=== PATIENT | female | born 1985 | race Caucasian/White ===

== ENCOUNTER → 2017-11-17 10:01 | Outpatient (CLI) | payer BC, SELFPAY ==
--- NOTE | 2017-11-17 10:05 | MR_ITS ---
MR knee LT wo con HISTORY: Left knee pain/sprain following twisting injury swelling ITS.REASON: SPRAIN OF KNEE ORDERING PHYSICIAN: Rodolfo Bustillos PATIENT AGE: 32 years Comparison: None TECHNIQUE: Standard multiplanar multiecho sequences are performed without contrast. FINDINGS: The cruciate ligaments, collateral ligaments, patellar tendon, and quadriceps tendon are unremarkable. No meniscal tear. Increased T2 signal involves the lateral aspect of the proximal tibia and the fibular head at the tibial fibular junction consistent with bone bruise. On the coronal images there is a curvilinear area of decreased signal intensity along the lateral aspect of the proximal tibia which may represent an avulsed popliteal fibular ligament. There is some mild lateral subluxation of the patella with some minimal thinning of the patellar cartilage. The patellofemoral ligaments appear intact. Only small amount fluid is present within the knee joint. IMPRESSION: 1. Suspect tear of the popliteal fibular ligament 2. Lateral subluxation of the patella a small knee joint effusion and mild chondromalacia patella. 3. No meniscal tear or cruciate ligament tear
== END ==
PROVIDERS: PCP Nurse Practitioner Family; Visit Provider Family Medicine Sports Medicine
DX: S83.8X2A Sprain of other specified parts of left knee, initial encounter (principal)
CPT/HCPCS: 73721

== ENCOUNTER → 2019-01-15 13:52 | Outpatient (CLI) | payer BC, SELFPAY ==
[2019-01-15 17:42] LABS: Alanine Aminotransferase 89 U/L (12-78); Albumin Level 4.3 gm/dL (3.4-5.0); Albumin/Globulin Ratio 1.3 (1.1-1.8); Alkaline Phosphatase 62 U/L (46-116); Anion Gap 14.4 mEq/L (5-15); Aspartate Amino Transferase 51 U/L (15-37); Bilirubin,Total 0.8 mg/dL (0.2-1.0); Blood Urea Nitrogen 7 mg/dL (7-18); Calcium 9.3 mg/dL (8.5-10.1); Carbon Dioxide 28 mmol/L (21.0-32.0); Chloride 102 mmol/L (98-107); Cholesterol 212 mg/dL (140-200); Creatinine,Serum 0.72 mg/dL (0.55-1.02); Estimated Glomerular Filt Rate 92 ml/min (>60); GFR (African American) 112 ML/MIN (>60); Globulin 3.3 gm/dl (1.3-3.2); Glucose 85 mg/dL (74-106); HDL Cholesterol 42 mg/dL (29-89); LDL Cholesterol 132 mg/dL (0-130); Potassium 4.4 mmoL/L (3.5-5.1); Sodium 140 mmol/L (136-145); Total Protein,Serum 7.6 gm/dL (6.4-8.2); Triglycerides 191 mg/dL (30-200); VLDL Cholesterol 38 mg/dL (0-40)
== END ==
PROVIDERS: Visit Provider Nurse Practitioner
DX: R63.5 Abnormal weight gain (principal)
CPT/HCPCS: 36415; 80053; 80061

== ENCOUNTER → 2019-03-15 13:55 | Outpatient (CLI) | payer BC, SELFPAY ==
[2019-03-15 14:39] LABS: Basophils % 0.5 % (0.1-2.0); Eosinophils # 0.1 K/mm3 (0.0-0.4); Eosinophils % 2.1 % (0.1-12.0); Hematocrit 37.6 % (37.0-47.0); Hemoglobin 11.1 g/dL (12.2-16.2); Lymphocytes # 1.7 K/mm3 (0.7-4.5); Lymphocytes % 25.4 % (10-50); Mean Corpuscular HGB Conc 29.6 g/dL (31.8-35.4); Mean Corpuscular Hemoglobin 19.2 pg (27.0-31.2); Mean Corpuscular Volume 64.9 fl (81-99); Mean Platelet Volume 7.2 fl (7.4-10.4); Monocytes # 0.3 K/mm3 (0.1-1.0); Monocytes % 4.6 % (1.7-9.3); Neutrophils # 4.4 K/mm3 (1.8-7.8); Neutrophils % 67.4 % (37.0-80.0); Platelet Count 378 K/mm3 (142-424); Red Cell Distribution Width 14.7 % (11.5-17.5); White Blood Count 6.6 K/mm3 (4.8-10.8)
[2019-03-15 15:40] LABS: Anion Gap 15.2 mEq/L (5-15); Blood Urea Nitrogen 9 mg/dL (7-18); Calcium 9.2 mg/dL (8.5-10.1); Carbon Dioxide 27 mmol/L (21.0-32.0); Chloride 103 mmol/L (98-107); Creatinine,Serum 0.79 mg/dL (0.55-1.02); Estimated Glomerular Filt Rate 83 ml/min (>60); GFR (African American) 100 ML/MIN (>60); Glucose 119 mg/dL (74-106); Potassium 4.2 mmoL/L (3.5-5.1); Sodium 141 mmol/L (136-145)
== END ==
PROVIDERS: PCP Nurse Practitioner Family; Visit Provider Otolaryngology
DX: S02.2XXA Fracture of nasal bones, initial encounter for closed fracture (principal)
CPT/HCPCS: 36415; 80048; 85025

== ENCOUNTER → 2019-03-17 13:19 | Outpatient (CLI) | payer BC, SELFPAY ==
--- NOTE | 2019-03-17 | ECG_ITS ---
APPROVED REPORT Exam: Resting ECG HR:68 bpm ECG Measurements Heart Rate 68 AXES IN 130 P 63 QRSd 84 QRS 49 QT 444 T 51 QTc 472 <Conclusion> Normal sinus rhythm Normal ECG Electronically signed by : Minh Booker, 03/19/2019 16:39:34
== END ==
PROVIDERS: Visit Provider Otolaryngology
DX: Z01.818 Encounter for other preprocedural examination (principal); S02.2XXA Fracture of nasal bones, initial encounter for closed fracture
CPT/HCPCS: 93005

== ENCOUNTER → 2019-08-06 10:16 | Outpatient (CLI) | payer BC, SELFPAY ==
--- NOTE | 2019-08-06 10:16 | MR_ITS ---
PROCEDURE: MR ANKLE RT WO/W CON CLINICAL INDICATION: Evaluate for peroneal tendon tear. High ankle sprain, peroneal tendon injury, deltoid ligament sprain COMPARISON: XR ANKLE RT MIN 3V from 07/20/2019 TECHNIQUE: Routine multiplanar multi echo sequences are performed without and with gadolinium enhancement. FINDINGS: No bone bruise or fracture apparent. The tibiofibular ligaments appear intact. There is focal increased T2 signal involving the medial aspect of the ATFL consistent with a tear. The PT FL appears intact. The deltoid ligaments appear intact.. The spring ligament appears intact. There is a type 2 os navicularis with unremarkable signal intensity at the apophysis. There is a small amount of fluid in the anterior aspect of the ankle joint and a moderate amount of fluid in the posterior aspect of the ankle at the talocalcaneal region and extending into the soft tissues of categories fat pad. Soft tissue swelling is present both medially and laterally. The Achilles tendon appears intact. There is a small amount of fluid around the peroneal tendon sheath just inferior to the tip of the lateral malleolus. There is no evidence of complete tear of the peroneal tendons. There is increased T2 signal involving the peroneal longus tendon at the region of the distal calcaneus. There is some slight increased T2 signal involving the peroneal brevis tendon inferior to the tip of the lateral malleolus which could represent partial tear or some tendinitis. The there is a moderate amount of fluid and edema around the peroneal brevis tendon sheath with edema at the lateral calcaneal area and inferior to the tip of the lateral malleolus. Fluid is also present surrounding the distal aspect of the posterior tibialis and flexor digitorum longus tendon with a greater amount of fluid around the distal aspect of the flexor hallucis longus tendon and also fluid in the soft tissues posteriorly at the ankle joint. IMPRESSION: The 1. Tear of the medial aspect of the ATFL. 2. Possible partial tear versus the strain of the peroneal brevis tendon inferior to the tip of the lateral malleolus. There is also increased T2 signal involving the peroneal longus tendon at the level of the distal calcaneus laterally which could represent strain versus partial tear. A complete tear is not felt to be present. 3. Ankle joint effusion with fluid around the posterior tibialis, flexor hallucis longus and flexor digitorum longus tendons. 4. Moderate amount soft tissue swelling about the ankle joint. 5. Type 2 os navicularis Dictated by: Keon Maradiaga MD 08/06/2019 14:42 Electronically signed by Keon Maradiaga MD in [place] 08/06/2019 14:42
== END ==
PROVIDERS: PCP Nurse Practitioner Family; Visit Provider Podiatrist
DX: S93.491A Sprain of other ligament of right ankle, initial encounter (principal)
CPT/HCPCS: 73723; A9576

== ENCOUNTER 2020-05-01 16:07 | Emergency (ER) | payer BC, SELFPAY ==
[2020-05-01 16:15] VITALS: BP 150/90; PULSE 86; RESP 20; TEMP 36.9; O2SAT 99; BMI 32.3
--- NOTE | 2020-05-01 16:42 | HMH.EDUTC ---
[facility] – [place] Disposition Clinical Impression: Abdominal pain Qualifiers: Abdominal location: unspecified location Qualified Code(s): R10.9 - Unspecified abdominal pain Disposition: Still a Patient Condition on Discharge: Good Referrals: Kesha Nieves [Primary Care Provider] - Time of Disposition: 16:52 Medical Decision Making - Angel Inquiry Pt receiving controlled substance: No Angel was queried for this patient: No Vital Signs: 05/01/20 16:15 Temperature 98.4 F Temperature Source Oral Pulse Rate [Right Brachial] 86 Respiratory Rate 20 Blood Pressure [Right Arm] 150/90 H Blood Pressure Mean [Right Arm] 110 Blood Pressure Source [Right Arm] Automatic Cuff Blood Pressure Position [Right Arm] Sitting 02 Sat by Pulse Oximetry 99 Oxygen Delivery Method Room Air Medical Decision Narrative: Patient reports having abdominal pain and swelling in left upper abdomen discussed with patient and she advised that pain has been occurring for the last 3 days and continued to get worse Due to abdominal pain and tenderness when palpated recommended transfer to the ED for further work up and evaluation Called ED and patient moved to room 9 without complications [facility] [place] HPI - General Stated complaint: Pain under left breast area;Protruding;and nausea Time Seen by Provider: 05/01/20 16:43 Mode of Arrival: Ambulatory Source of Information: Patient Limitations: No Limitations Description of Symptoms (Recalled from Triage Doc. by RN): PATIENT C/O LUQ PAIN AND SWELLING WITH NAUSEA X 2 DAYS. SHE DESCRIBES THE PAIN SHOOTING, SOMETIMES INTO HER BLQ. SHE HAS DIARRHEA, BUT STATES THAT IS NORMAL FOR HER SINCE SHE HAS A CHOLECYSTECTOMY AND BILE DUCT DILATION IN 2007. HEENT Symptoms (Recalled from RN notes): No Resp Symptoms (Recalled from RN notes): No Skin Symptoms (Recalled from RN notes): No MS Symptoms (Recalled from RN notes): No Functional Status (Recalled from RN notes): WNL - History of Present Illness Provider Complaint: Patient states that she has been having pain in her left upper abdomen that has continued to get worse over the last 3 days States that she has had diarrhea and nausea but she has that frequently and didnt think anything of it until she noticed pain was getting worse and at times would shoot in her back and lower abdomen. States that she had gallbladder removed about 12 yrs ago and had to have her duct dilated due to gallstone lodged and she has had diarrhea on and off since then States that today she noticed her left upper abdomen looked swollen and would have pain with certain ways she sits and feels pressure/ that goes up under her left breast State that her abdomen is sore to the touch - Related Data Home Medications Medication Instructions Recorded Confirmed estradiol 1 mg tablet 1 mg PO ONCE tab 06/14/17 08/23/19 fluoxetine 60 mg tablet 60 mg PO ONCE 06/14/17 08/23/19 metformin 1,000 mg tablet 1,500 mg PO ONCE tab 06/14/17 08/23/19 buspirone 10 mg tablet 10 mg PO NEEDED PRN #60 tab 12/20/18 08/23/19 phentermine 37.5 mg tablet 37.5 mg PO DAILY 08/09/19 08/23/19 Previous Rx's Medication Instructions Recorded fluticasone propionate 50 1 spray INTRANASAL DAILY #9.9 ml 04/01/19 mcg/actuation nasal spray,suspension diclofenac sodium 1 % topical gel 4 g TOPICAL QID PRN #30 g 08/23/19 Allergies Allergy/AdvReac Type Severity Reaction Status Date / Time clarithromycin [From BIAXIN] Allergy Unknown Unknown Verified 08/23/19 10:10 allergy reaction shellfish derived Allergy Unknown I-HIVES Verified 08/23/19 10:10 [From SHELLFISH (FOOD/DRUG)] - Worker's Comp Is this a Worker's Comp case?: No [facility] History - Hepatitis A Screen Drug use history?: No High risk sexual behaviors?: No History of sexually transmitted infection?: No Currently employed?: No Childcare worker?: No Do you have indoor plumbing?: Yes Do you have electricity?: Yes Attestation statement:: This patient
--- NOTE | 2020-05-01 16:51 | PC.NURSE ---
PATIENT TO ER PER WENDY RAMIREZ APRN FOR FURTHER EVALUATION. REPORT GIVEN BY Osmani RAMIREZ APRN TO Fredi WALLACE RN
[2020-05-01 17:11] VITALS: BP 122/85; PULSE 84; RESP 16; TEMP 36.8; O2SAT 98; BMI 32.3
--- NOTE | 2020-05-01 17:21 | CT_ITS ---
PROCEDURE: CT ABDOMEN PELVIS WO CON CLINICAL INDICATION: pain LUQ Left upper quadrant pain COMPARISON: CT ABDPELW CT abdomen pelvis w con from 12/25/2017 TECHNIQUE: Axial images obtained with sagittal and coronal reformats. All CT scans at the facility use one or more dose reduction, viz: automated exposure control, ma/kV adjustment per patient size (including targeted exams where dose is matched to indication, i.e. head), or iterative reconstruction technique. FINDINGS: LOWER THORAX: No acute finding ABDOMEN & PELVIS: Fatty liver. Mild hepatomegaly. Prior cholecystectomy. Adrenal glands, pancreas, and kidneys have an unremarkable appearance. No renal or ureteral calculi. No hydronephrosis. Scattered small nodes are present in the mesenteries. No evidence of appendicitis or diverticulitis. There is a mild amount of retained colonic feces in the rectosigmoid region. There has been a prior hysterectomy. There is a small umbilical hernia containing fat. No acute bony findings. IMPRESSION: No acute finding Dictated by: Keon Maradiaga MD 05/02/2020 07:01 Keon Maradiaga MD in [place] 05/02/2020 07:01
[2020-05-01 17:26] LABS: Microscopic, Urine URINE MICROSCOPIC (MICROSCOPIC)
[2020-05-01 17:28] VITALS: BP 125/86; PULSE 76; O2SAT 98
[2020-05-01 17:29] LABS: Appearance,Urine SL CLOUDY (Clear); Bilirubin,Urine Negative (Negative); Blood, Urine Negative (Negative); Color,Urine YELLOW (Yellow); Glucose,Urine (UA) Negative (Negative); Ketones,Urine Negative (Negative); Leukocyte Esterase,Urine Negative (Negative); Nitrate,Urine Negative (Negative); Protein,Urine Negative (Negative); Specific Gravity, Urine 1.025 (1.005-1.030); Urobilinogen,Urine 0.2 EU/dl (0.2)
[2020-05-01 17:36] LABS: Urine Pregnancy, HCG Qual. Negative (Negative)
--- NOTE | 2020-05-01 17:46 | PC.NURSE ---
pt going to rad
[2020-05-01 17:50] LABS: Bacteria,Urine 3+ /lpf
[2020-05-01 18:00] LABS: Basophils # 0.1 K/mm3 (0-0.2); Basophils % 0.8 % (0.1-2.0); Eosinophils # 0.3 K/mm3 (0.0-0.4); Eosinophils % 3.9 % (0.1-12.0); Hematocrit 37.6 % (37.0-47.0); Lymphocytes # 2.3 K/mm3 (0.7-4.5); Lymphocytes % 31.9 % (10-50); Mean Corpuscular HGB Conc 31.9 g/dL (31.8-35.4); Mean Corpuscular Hemoglobin 20.1 pg (27.0-31.2); Mean Corpuscular Volume 62.9 fl (81-99); Mean Platelet Volume 7.4 fl (7.4-10.4); Monocytes # 0.4 K/mm3 (0.1-1.0); Monocytes % 5.2 % (1.7-9.3); Neutrophils # 4.3 K/mm3 (1.8-7.8); Neutrophils % 58.2 % (37.0-80.0); Platelet Count 413 K/mm3 (142-424); Red Blood Count 5.98 M/mm3 (4.20-5.40); Red Cell Distribution Width 15.1 % (11.5-17.5); White Blood Count 7.3 K/mm3 (4.8-10.8)
[2020-05-01 18:02] LABS: Chloride 103 mmol/L (98-107)
[2020-05-01 18:03] LABS: Sodium 139 mmol/L (136-145)
[2020-05-01 18:05] LABS: Alanine Aminotransferase 70 U/L (12-78); Alkaline Phosphatase 66 U/L (38-126); Aspartate Amino Transferase 55 U/L (14-36); Bilirubin,Total 0.8 mg/dl (0.2-1.3); Blood Urea Nitrogen 7 mg/dl (7-17); Carbon Dioxide 28 mmol/L (22.0-30.0); Creatinine Clearance Estimated 186 mL/min (50-200); Estimated Glomerular Filt Rate 113 ml/min (>60); GFR (African American) 137 ML/MIN (>60); Lipase 77 U/L (23-300)
[2020-05-01 18:06] LABS: Albumin/Globulin Ratio 1.4 (1.1-1.8); Calcium 9.6 mg/dl (8.4-10.2); Globulin 3.5 g/dL (1.3-3.2); Glucose 101 mg/dl (74-100); Total Protein,Serum 8.5 g/dl (6.3-8.2)
--- NOTE | 2020-05-01 18:13 | HMH.EDABDPAI ---
ED Disposition Clinical Impression: Abdominal pain Qualifiers: Abdominal location: unspecified location Qualified Code(s): R10.9 - Unspecified abdominal pain Strain of abdominal wall Qualifiers: Encounter type: initial encounter Qualified Code(s): S39.011A - Strain of muscle, fascia and tendon of abdomen, initial encounter Disposition: Home, Self-Care Condition on Discharge: Good Instructions: DI for Abdominal Pain-Adult Referrals: Kesha Nieves [Primary Care Provider] - - Critical Care Critical Care Time: No Attestation: On 05/01/20, the high probability of a clinically significant, sudden or life threatening deterioration of the following system(s) required my full and direct attention, intervention and personal management. The time I documented below is in addition to time spent performing reported procedures but includes the following listed in this critical care notation. Medical Decision Making - Medical Records Medical records reviewed: Yes: I reviewed the patient's medical records. - Angel Inquiry Pt receiving controlled substance: No Vital Signs: 05/01/20 16:15 05/01/20 17:11 05/01/20 17:28 Temperature 98.4 F 98.2 F Temperature Source Oral Oral Pulse Rate [Right Brachial] 86 84 76 Respiratory Rate 20 16 Blood Pressure [Right Arm] 150/90 H 122/85 125/86 Blood Pressure Mean [Right Arm] 110 97 99 Blood Pressure Source [Right Arm] Automatic Cuff Automatic Cuff Automatic Cuff Blood Pressure Position [Right Arm] Sitting Sitting 02 Sat by Pulse Oximetry 99 98 98 Oxygen Delivery Method Room Air Room Air Room Air - Lab Data Lab Results 05/01/20 15:19: Urine Color Yellow, Urine Appearance Sl cloudy, Urine pH 6.0, Ur Specific Taylor 1.025, Urine Protein Negative, Urine Glucose (UA) Negative, Urine Ketones Negative, Urine Blood Negative, Urine Nitrate Negative, Urine Bilirubin Negative, Urine Urobilinogen 0.2, Ur Leukocyte Esterase Negative, Urine WBC 3-5, Ur Squamous Epith Cells 3-5, Urine Bacteria 3+ 05/01/20 15:19: Urine HCG, Qual Negative 05/01/20 17:30: WBC 7.3, RBC 5.98 H, Hgb 12.0 L, Hct 37.6, MCV 62.9 L, MCH 20.1 L, MCHC 31.9, RDW 15.1, Plt Count 413, MPV 7.4, Neut % (Auto) 58.2, Lymph % (Auto) 31.9, [place] % (Auto) 5.2, Eos % (Auto) 3.9, Baso % (Auto) 0.8, Neut # (Auto) 4.3, Lymph # (Auto) 2.3, [place] # (Auto) 0.4, Eos # (Auto) 0.3, Baso # (Auto) 0.1 05/01/20 17:30: Sodium 139, Potassium 4.0, Chloride 103, BUN 7, Creatinine 0.60, Estimated Creat Clear 186, Estimated GFR 113, Est GFR ( Amer) 137, Total Bilirubin 0.8, AST 55 H, ALT 70, Alkaline Phosphatase 66 Result diagrams: 05/01/20 17:30 05/01/20 17:30 Orders (Tests/Meds): ED MEDICATIONS Generic Name Dose Route Start Last Admin Trade Name Freq PRN Reason Stop Dose Admin Ketorolac Tromethamine 30 mg 05/01/20 18:13 Ketorolac 30mg/Ml Vial IV 05/01/20 18:14 ONCE ONE Discontinued Medications Generic Name Dose Route Start Last Admin Trade Name Freq PRN Reason Stop Dose Admin Morphine Sulfate 4 mg 05/01/20 17:21 Morphine 4mg/Ml Syringe IV 05/01/20 17:22 ONCE ONE Ondansetron HCl 4 mg 05/01/20 17:21 Ondansetron 4mg/2ml Vial IV 05/01/20 17:22 ONCE ONE ORDERS Category Date Time Status CT abdomen pelvis wo con Stat Cat Scan 05/01/20 17:21 Taken Comprehensive Metabolic Panel Stat Lab 05/01/20 17:30 Results Lipase Stat Lab 05/01/20 17:30 Results Urine Culture Stat Micro 05/01/20 15:19 Received - CT Data CT Scan: Abdomen, Pelvis Time Received: 18:[address] Reviewed: Yes: I have reviewed the patient's CT results, I have viewed the radiologist's interpretation Findings Narrative: No discrete findings, no bowel obstruction. Soft tissue normal. - Reevaluation(s) Time: 18:17 Reevaluation #1: On reevaluation, patient is feeling better. Work-up is benign. Repeat abdominal exam is normal. I do believe this is secondary to abdominal muscle wall strain. Patient needs foll
[2020-05-01 18:33] VITALS: BP 123/78; PULSE 80; RESP 18; TEMP 36.8; O2SAT 97
== END 2020-05-01 18:34 | disposition home or self-care (01) ==
LOC: UTC 16:52 → ER 16:59
PROVIDERS: Emergency Provider Emergency Medicine; PCP Nurse Practitioner Family
DX: R10.12 Left upper quadrant pain (principal); S39.011A Strain of muscle, fascia and tendon of abdomen, initial encounter; W01.0XXA Fall on same level from slipping, tripping and stumbling without subsequent striking against object, initial encounter; Y92.009 Unspecified place in unspecified non-institutional (private) residence as the place of occurrence of the external cause; F41.9 Anxiety disorder, unspecified; E11.9 Type 2 diabetes mellitus without complications; Z79.899 Other long term (current) drug therapy
CPT/HCPCS: 74176; 80053; 81001; 81025; 83690; 85025; 87086; 96374; 96375; 99283; J2405

== ENCOUNTER → 2020-08-17 11:12 | Outpatient (CLI) | payer BC, SELFPAY ==
[2020-08-17 11:57] LABS: Basophils % 0.6 % (0.1-2.0); Eosinophils # 0.2 K/mm3 (0.0-0.4); Eosinophils % 2.7 % (0.1-12.0); Hematocrit 37.4 % (37.0-47.0); Hemoglobin 11.9 g/dL (12.2-16.2); Lymphocytes # 1.9 K/mm3 (0.7-4.5); Lymphocytes % 32.4 % (10-50); Mean Corpuscular HGB Conc 31.7 g/dL (31.8-35.4); Mean Corpuscular Hemoglobin 19.6 pg (27.0-31.2); Mean Corpuscular Volume 61.9 fl (81-99); Mean Platelet Volume 7.6 fl (7.4-10.4); Monocytes # 0.3 K/mm3 (0.1-1.0); Monocytes % 5.3 % (1.7-9.3); Neutrophils # 3.5 K/mm3 (1.8-7.8); Platelet Count 447 K/mm3 (142-424); Red Blood Count 6.05 M/mm3 (4.20-5.40); Red Cell Distribution Width 14.5 % (11.5-17.5); White Blood Count 5.9 K/mm3 (4.8-10.8)
[2020-08-17 12:25] LABS: Chloride 102 mmol/L (98-107); Potassium 4.7 mmoL/L (3.5-5.1); Sodium 138 mmol/L (136-145)
[2020-08-17 12:27] LABS: Hemoglobin A1C 5.5 % (4.0-6.0)
[2020-08-17 12:28] LABS: Alanine Aminotransferase 135 U/L (12-78); Albumin Level 5.2 g/dl (3.5-5.0); Albumin/Globulin Ratio 1.9 (1.1-1.8); Alkaline Phosphatase 66 U/L (38-126); Anion Gap 15.7 mEq/L (5-15); Aspartate Amino Transferase 83 U/L (14-36); Bilirubin,Total 0.6 mg/dl (0.2-1.3); Blood Urea Nitrogen 11 mg/dl (7-17); Calcium 10.3 mg/dl (8.4-10.2); Carbon Dioxide 25 mmol/L (22.0-30.0); Cholesterol 200 mg/dl (140-200); Estimated Glomerular Filt Rate 94 ml/min (>60); GFR (African American) 114 ML/MIN (>60); Globulin 2.8 g/dL (1.3-3.2); Glucose 107 mg/dl (74-100); Triglycerides 127 mg/dl (30-150); VLDL Cholesterol 25 mg/dL (0-40)
[2020-08-17 12:29] LABS: Chol/HDL Ratio 4.9 (1-3.5); HDL Cholesterol 41 mg/dl (40-60)
[2020-08-17 12:39] LABS: Direct LDL Cholesterol 119.55 mg/dL (100-129)
[2020-08-17 12:59] LABS: Thyroid Stimulating Hormone 1.16 uIU/mL (0.465-4.68)
== END ==
PROVIDERS: Visit Provider Family Medicine
DX: R63.5 Abnormal weight gain (principal)
CPT/HCPCS: 36415; 80053; 80061; 83036; 84439; 84443; 85025

== ENCOUNTER → 2021-06-18 16:02 | Outpatient (CLI) | payer BC, SELFPAY | PROVIDERS: PCP Nurse Practitioner Family; Visit Provider Surgery | DX: Z01.812 Encounter for preprocedural laboratory examination (principal); Z11.52 Encounter for screening for COVID-19; E66.01 Morbid (severe) obesity due to excess calories | CPT/HCPCS: C9803; U0003; U0005 ==

== ENCOUNTER 2021-09-13 15:37 | Emergency (ER) | payer BC, SELFPAY ==
[2021-09-13 15:45] VITALS: BP 141/96; PULSE 98; RESP 19; TEMP 36.6; O2SAT 98; BMI 39.7
--- NOTE | 2021-09-13 16:09 | HMH.EDUTC ---
[facility] [place] Clinical Impression: Sinusitis Qualifiers: Sinusitis location: unspecified location Chronicity: unspecified Qualified Code(s): J32.9 - Chronic sinusitis, unspecified Disposition: Home, Self-Care Condition on Discharge: Good Instructions: Sinusitis, DI for Sinusitis Additional Instructions: *Monitor Temp, Over the counter Motrin or Tylenol as directed/as needed Tylenol every 4 hours and Motrin every 6 hours (as long as your family doctor has told you that you can take it) for fever or pain. and straight to ER if unable to lower temp less than 101.0 after medication given *Warm salt water gargles may help to soothe the throat *Throat Lozenges *Warm fluids like tea with honey may help to soothe the throat *Sleep elevated *Humidifier/Vaporizer Take medication as prescribed Follow up IMMEDIATELY for new or worsening symptoms or no Noticeable improvement over the next 48-72 hours. 911 for difficulty breathing or swallowing Prescriptions: Amoxicillin/Potassium Clav [Amox-Clav 875-125 mg Tablet] 1 tab PO BID #20 tab Transmission Status: Pending to [facility] methylPREDNISolone [Medrol 4mg tab] 4 mg PO DIRECTED #21 tab Transmission Status: Pending to [facility] Referrals: Kesha Nieves [Primary Care Provider] - As needed Time of Disposition: 16:26 Medical Decision Making - Angel Inquiry Pt receiving controlled substance: No Angel was queried for this patient: No Vital Signs: 09/13/21 15:45 Temperature 97.9 F Temperature Source Oral Pulse Rate [Right Brachial] 98 H Respiratory Rate 19 Blood Pressure [Right Arm] 141/96 H Blood Pressure Mean [Right Arm] 111 Blood Pressure Source [Right Arm] Automatic Cuff Blood Pressure Position [Right Arm] Sitting 02 Sat by Pulse Oximetry 98 Oxygen Delivery Method Room Air Medical Decision Narrative: Patient states that she has taken augmentin and medrol in the past without complcation or reactions [facility] [place] - General Stated complaint: poss sinus inf Time Seen by Provider: 09/13/21 16:09 Mode of Arrival: Ambulatory Source of Information: Patient Limitations: No Limitations Description of Symptoms (Recalled from Triage Doc. by RN): PATIENT C/O SINUS PRESSURE AND DRAINAGE X 3 DAYS HEENT Symptoms (Recalled from RN notes): Yes Resp Symptoms (Recalled from RN notes): No Skin Symptoms (Recalled from RN notes): No MS Symptoms (Recalled from RN notes): No Functional Status (Recalled from RN notes): WNL - History of Present Illness Provider Complaint: Patient states that she has been fighting with allergies for about 3 weeks and about a week ago she started having sinus pressure and pain States that for the last 3 days it has continued to get worse so today when she was still not feeling well she came in to get checked out - Related Data Home Medications Medication Instructions Recorded Confirmed estradiol 1 mg tablet 1 mg PO ONCE tab 06/14/17 03/04/21 fluoxetine 60 mg tablet 60 mg PO ONCE 06/14/17 03/04/21 metformin 1,000 mg tablet 1,500 mg PO ONCE tab 06/14/17 03/04/21 lisinopril 5 mg tablet 5 mg PO DAILY 07/05/20 03/04/21 Previous Rx's Medication Instructions Recorded amoxicillin 875 mg-potassium 1 tab PO BID 10 Days #20 tab 03/04/21 clavulanate 125 mg tablet carbamide peroxide 6.5 % ear drops 5 drp OTIC Q12H 4 Days #15 ml 03/04/21 Amoxicillin [Amoxicillin 500mg Tab] 500 mg PO TID 10 Days #30 tab 06/26/21 Amoxicillin/Potassium Clav 1 tab PO BID #20 tab 09/13/21 [Amox-Clav 875-125 mg Tablet] methylPREDNISolone [Medrol 4mg 4 mg PO DIRECTED #21 tab 09/13/21 tab] Allergies Allergy/AdvReac Type Severity Reaction Status Date / Time clarithromycin [From BIAXIN] Allergy Unknown Unknown Verified 03/04/21 13:19 allergy reaction shellfish derived Allergy Unknown I-HIVES Verified 03/04/21 13:19 [From SHELLFISH (FOOD/DRUG)] - Worker's Comp Is this a Worker's Comp case?: No [facility] Histor
[2021-09-13 16:44] VITALS: BP 141/96; PULSE 98; RESP 19; TEMP 36.6; O2SAT 98
== END 2021-09-13 16:45 | disposition home or self-care (01) ==
PROVIDERS: Emergency Provider Nurse Practitioner; PCP Nurse Practitioner Family
DX: J32.9 Chronic sinusitis, unspecified (principal)
CPT/HCPCS: 99212; G0463

== ENCOUNTER 2021-12-11 11:37 | Emergency (ER) | payer BC, SELFPAY ==
[2021-12-11 12:25] VITALS: BP 121/86; PULSE 89; RESP 19; TEMP 36.8; O2SAT 98; BMI 33.0
--- NOTE | 2021-12-11 12:44 | EXP.UTC ---
Discharge Plan Disposition Patient Disposition: Home, Self-Care Condition: Good Prescriptions Prescriptions: New amoxicillin-pot clavulanate 875-125 mg tablet 1 tab PO Q12H 7 Days Qty: 14 0RF No Action fluoxetine 60 mg tablet 60 mg PO ONCE metformin 1,000 mg tablet 1,500 mg PO ONCE estradiol 1 mg tablet 1 mg PO ONCE lisinopril 5 mg tablet 5 mg PO DAILY carbamide peroxide [Debrox] 6.5 % drops 5 drp OTIC Q12H 4 Days Qty: 15 0RF amoxicillin-pot clavulanate [Augmentin] 875-125 mg tablet 1 tab PO BID 10 Days Qty: 20 0RF amoxicillin 500 MG tablet 500 mg PO TID 10 Days Qty: 30 0RF methylprednisolone 4 MG tablet 4 mg PO DIRECTED Qty: 21 0RF Rx Instructions: Take as directed on package instructions amoxicillin-pot clavulanate 1 EACH tablet 1 tab PO BID Qty: 20 0RF Referrals Follow up/Referrals: Kesha Nieves [Primary Care Provider] - See instructions Activity Restrictions/Add. Instructions Additional Instructions/Restrictions: *Monitor Temp, Over the counter Motrin or Tylenol as directed/as needed Tylenol every 4 hours and Motrin every 6 hours (as long as your family doctor has told you that you can take it) for fever or pain. and straight to ER if unable to lower temp less than 101.0 after medication given *Warm salt water gargles may help to soothe the throat *Throat Lozenges? *Warm fluids like tea with honey may help to soothe the throat? *Sleep elevated *Humidifier/Vaporizer Take medication as prescribec Follow up IMMEDIATELY for new or worsening symptoms or no Noticeable improvement over the next 48-72 hours. 911 for difficulty breathing or swallowing Clinical Impressions Clinical Impression: Sinusitis Instructions Patient Instructions: DI for Sinusitis Discharge ED Provider: [facility] [place] HPI General Stated complaint: congestion, dizzy, fever, possible sinus infection Mode of Arrival: Ambulatory Source of Information: Patient Limitations: No Limitations Time Seen by Provider: 12/11/21 12:44 Description of Symptoms (Recalled from Triage Doc. by RN): PATIENT C/O CONGESTION, HEAD ACHE, FEVER, AND SINUS PRESSURE X 2 DAYS HEENT Symptoms (Recalled from RN notes): Yes Resp Symptoms (Recalled from RN notes): No Skin Symptoms (Recalled from RN notes): No MS Symptoms (Recalled from RN notes): No Functional Status (Recalled from RN notes): WNL History of Present Illness Provider Complaint: Patient states that she feels like she may have a sinus infection States that she has been having sinus pain and pressure with pressure behind her eyes feeling like she may have a low grade fever and headache State that feels like she did when she had sinus infection a few months ago Related Data Home Medications Medication Instructions Recorded Confirmed estradiol 1 mg tablet 1 mg PO ONCE unknown 06/14/17 03/04/21 fluoxetine 60 mg tablet 60 mg PO ONCE Allergy symptoms 06/14/17 03/04/21 metformin 1,000 mg tablet 1,500 mg PO ONCE Diabetes 06/14/17 03/04/21 lisinopril 5 mg tablet 5 mg PO DAILY 07/05/20 03/04/21 Previous Rx's Medication Instructions Recorded amoxicillin 875 mg-potassium 1 tab PO BID 10 days #20 tabs 03/04/21 clavulanate 125 mg tablet (Augmentin) carbamide peroxide 6.5 % ear drops 5 drp otic (ear) Q12H 4 days #15 mL 03/04/21 (Debrox) amoxicillin 500 mg tablet 500 mg PO TID 10 days #30 tabs 06/26/21 amoxicillin 875 mg-potassium 1 tab PO BID #20 tabs 09/13/21 clavulanate 125 mg tablet methylprednisolone 4 mg tablet 4 mg PO DIRECTED #21 tabs 09/13/21 amoxicillin 875 mg-potassium 1 tab PO Q12H 7 days #14 tabs 12/11/21 clavulanate 125 mg tablet Allergies Allergy/AdvReac Type Severity Reaction Status Date / Time clarithromycin [From BIAXIN] Allergy Unknown Unknown Verified 03/04/21 13:19 allergy reaction shellfish derived Allergy Unknown I-HIVES Verified 03/04/21 13:19 [From SHELL
[2021-12-11 13:00] VITALS: BP 121/86; PULSE 89; RESP 19; TEMP 36.8; O2SAT 98
== END 2021-12-11 13:02 | disposition home or self-care (01) ==
PROVIDERS: Emergency Provider Nurse Practitioner; PCP Nurse Practitioner Family
DX: J32.9 Chronic sinusitis, unspecified (principal)
CPT/HCPCS: 99212; G0463

== ENCOUNTER 2023-01-27 14:09 | Emergency (ER) | payer BC, SELFPAY ==
--- NOTE | 2023-01-27 14:19 | EXP.UTC ---
Discharge Plan Disposition Patient Disposition: Home, Self-Care Condition: Good Prescriptions Prescriptions: New amoxicillin [amoxicillin] 875 mg tablet 875 mg PO Q12H Qty: 20 0RF [id number]-[id number] [Bromfed DM] 2-30-10 mg/5 mL Syrup 5 ml PO Q6H PRN (Reason: Cough) Qty: 240 0RF methylprednisolone 4 mg Tablets,Dose Pack 4 mg PO DIRECTED Qty: 21 0RF No Action fluoxetine 40 mg Capsule 40 mg PO DAILY Referrals Follow up/Referrals: Tonya Kwok PA [Primary Care Provider] - See instructions Activity Restrictions/Add. Instructions Additional Instructions/Restrictions: Drink plenty of fluids. Take tylenol or ibuprofen for pain or fever. Take the medications as directed. Follow up with your regular doctor. GO TO THE ER FOR ANY WORSENING SYMPTOMS Clinical Impressions Clinical Impression: Sinusitis Instructions Patient Instructions: Sinusitis, DI for Sinusitis Discharge ED Provider: Manjit Garcia [facility] [place] HPI General Stated complaint: congestion, runny nose and french Time Seen by Provider: 01/27/23 14:19 Related Data Home Medications Medication Instructions Recorded Confirmed fluoxetine 40 mg capsule 40 mg PO DAILY 01/27/23 01/27/23 Previous Rx's Medication Instructions Recorded amoxicillin 875 mg tablet 875 mg PO Q12H #20 tabs 01/27/23 kuxeyqbufgprvke-mhkphiuljuqdubj-CE 5 ml PO Q6H PRN Cough #240 mL 01/27/23 2 mg-30 mg-10 mg/5 mL oral syrup (Bromfed DM) methylprednisolone 4 mg tablets in 4 mg PO DIRECTED #21 tabs 01/27/23 a dose pack Allergies Allergy/AdvReac Type Severity Reaction Status Date / Time clarithromycin [From BIAXIN] Allergy Unknown Unknown Verified 03/04/21 13:19 allergy reaction shellfish derived Allergy Unknown I-HIVES Verified 03/04/21 13:19 [From SHELLFISH (FOOD/DRUG)] [facility] Disclaimer: The information contained in this section may have been updated after the patient was seen, as this information can be updated by other users. Medical History (Updated 01/27/23 @ 14:44 by Manjit Garcia APRN) Anxiety Hypertension Urinary tract infection Surgical History (Updated 12/11/21 @ 12:42 by Erika Jones RN) H/O gastric sleeve History of section History of cholecystectomy History of hysterectomy Social History (Updated 12/11/21 @ 12:58 by Cynthia Oleary APRN) Smoking Status: Never smoker second hand exposure: No alcohol intake: never substance use type: denies use current occupational status: other Travel in the last 8 weeks: None household members: spouse housing: house current occupational exposures/hazards: No caffeine: Yes ROS Obtained: Yes All systems reviewed & no additional complaints except as documented Constitutional Constitutional: Reports poor appetite Eyes Eyes: Reports system reviewed and no additional complaints, except as documented ENT Ears, Nose, Mouth, and Throat: Reports as per HPI Cardiovascular Cardiovascular: Reports system reviewed and no additional complaints, except as documented and Denies chest pain Respiratory Respiratory: Denies shortness of breath, Denies chest congestion, Reports cough, Denies stridor and Denies wheezing Gastrointestinal Gastrointestingal: Reports system reviewed and no additional complaints, except as documented; Denies abdominal pain, diarrhea or vomiting Musculoskeletal Musculoskeletal: Reports system reviewed and no additional complaints, except as documented and Denies arthralgias Integumentary/Breasts Skin/Breast: Reports system reviewed and no additional complaints, except as documented and Denies rash Neurologic Neurologic: Denies paresthesias Allergic/Immunologic Allergic/Immunologic: Denies wheezing Physical Exam General General appearance: alert and in no apparent distress Eye Eye exam: Present normal appearance, PERRL and EOMI ENT ENT exam: Present mucous membranes moist and normal
[2023-01-27 14:20] VITALS: BP 151/64; PULSE 62; RESP 22; TEMP 36.8; O2SAT 99; BMI 25.2
[2023-01-27 14:46] VITALS: BP 151/64; PULSE 62; RESP 22; TEMP 36.8; O2SAT 99
== END 2023-01-27 14:47 | disposition home or self-care (01) ==
PROVIDERS: Emergency Provider Nurse Practitioner Family; PCP Physician Assistant
DX: J01.90 Acute sinusitis, unspecified (principal); I10 Essential (primary) hypertension; F41.9 Anxiety disorder, unspecified
CPT/HCPCS: 99212; 99214; G0463

== ENCOUNTER 2023-06-02 15:25 | Emergency (ER) | payer BC, SELFPAY ==
--- NOTE | 2023-06-02 15:44 | ED_ITS ---
Discharge Plan Disposition Patient Disposition: Home, Self-Care Condition: Good Prescriptions Prescriptions: New benzonatate [benzonatate] 100 mg capsule 100 mg PO TIDP PRN (Reason: Cough) Qty: 30 0RF methylprednisolone 4 mg Tablets,Dose Pack 4 mg PO DIRECTED 6 Days Qty: 21 0RF Rx Instructions: Take 1 pack as directed for 6 days amoxicillin-pot clavulanate 875-125 mg Tablet 1 tab PO Q12H Qty: 20 0RF guaifenesin [Mucinex] 600 mg tablet extended release 12hr 600 - 1,200 mg PO BIDP PRN (Reason: Congestion) Qty: 30 0RF No Action fluoxetine 40 mg Capsule 40 mg PO DAILY estradiol 1 mg tablet 1 mg PO DAILY Patient Comments: Take 1 tablet every day by oral route. Referrals Follow up/Referrals: Ana Kwok APRN [Primary Care Provider] - See instructions Activity Restrictions/Add. Instructions Additional Instructions/Restrictions: Drink plenty of fluids. Take tylenol or ibuprofen for pain or fever. Take the medications as directed. Follow up with your regular doctor. GO TO THE ER FOR ANY WORSENING SYMPTOMS Clinical Impressions Clinical Impression: Sinusitis Stand Alone Forms Stand Alone Forms: Work/School Release Instructions Patient Instructions: Sinusitis, DI for Sinusitis Discharge ED Provider: Manjit Garcia [facility] General Stated complaint: congestion drainage Time Seen by Provider: 06/02/23 15:42 History of Present Illness Provider Complaint: She states that for the past 3 days she has had worsening sinus congestion, sinus pressure and ear pain. Related Data Home Medications Medication Instructions Recorded Confirmed fluoxetine 40 mg capsule 40 mg PO DAILY 01/27/23 06/02/23 estradiol 1 mg tablet 1 mg PO DAILY 06/02/23 06/02/23 Previous Rx's Medication Instructions Recorded amoxicillin 875 mg-potassium 1 tab PO Q12H #20 tabs 06/02/23 clavulanate 125 mg tablet benzonatate 100 mg capsule 100 mg PO TIDP PRN Cough #30 caps 06/02/23 guaifenesin 600 mg tablet, 600 - 1,200 mg PO BIDP PRN 06/02/23 extended release 12 hr (Mucinex) Congestion #30 tabs methylprednisolone 4 mg tablets in 4 mg PO DIRECTED 6 days #21 tabs 06/02/23 a dose pack Allergies Allergy/AdvReac Type Severity Reaction Status Date / Time clarithromycin [From BIAXIN] Allergy Unknown Unknown Verified 03/04/21 13:19 allergy reaction shellfish derived Allergy Unknown I-HIVES Verified 03/04/21 13:19 [From SHELLFISH (FOOD/DRUG)] [facility] Disclaimer: The information contained in this section may have been updated after the patient was seen, as this information can be updated by other users. Medical History (Updated 06/02/23 @ 16:18 by Manjit Garcia APRN) Anxiety Hypertension Urinary tract infection Surgical History (Updated 12/11/21 @ 12:42 by Erika Jones RN) H/O gastric sleeve History of section History of cholecystectomy History of hysterectomy Social History (Updated 12/11/21 @ 12:58 by Cynthia Oleary APRN) Smoking Status: Never smoker second hand exposure: No alcohol intake: never substance use type: denies use current occupational status: other Travel in the last 8 weeks: None household members: spouse housing: house current occupational exposures/hazards: No caffeine: Yes ROS Obtained: Yes All systems reviewed & no additional complaints except as documented Constitutional Constitutional: Reports poor appetite Eyes Eyes: Reports system reviewed and no additional complaints, except as documented ENT Ears, Nose, Mouth, and Throat: Reports as per HPI Cardiovascular Cardiovascular: Reports system reviewed and no additional complaints, except as documented and Denies chest pain Respiratory Respiratory: Denies shortness of breath, Denies chest congestion, Reports cough, Denies stridor and Denies wheezing Gastrointestinal Gastrointestingal: Reports system reviewed and no additional complaints, except as documented; Denies abdominal pain, diarrhea or vomiting Musculoskeletal Musculoskeletal: Reports system reviewed and no additional complaints, except as documented and Denies arthralgias Integumentary/Breasts Skin/Breast: Reports system reviewed and no additional complaints, except as documented and Denies rash Neurologic Neurologic: Denies paresthesias Allergic/Immunologic Allergic/Immunologic: Denies wheezing Physical Exam General General appearance: alert and in no apparent distress Eye Eye exam: Present normal appearance, PERRL and EOMI ENT ENT exam: Present mucous membranes moist and normal external ear exam Expanded ENT Exam External ear exam: Present normal external inspection TM/Canal exam: Bilateral TM: erythema and bulging Nose exam: Absent sinus tenderness Nasal speculum exam: Bilateral: normal Mouth exam: Present normal external inspection; Absent drooling Teeth exam: Present normal inspection Throat exam: Present tonsillar erythema and tonsillomegaly Neck Neck exam: Present normal inspection, full ROM and trachea midline; Absent tenderness, lymphadenopathy or thyromegaly Chest Chest inspection: Present normal inspection and symmetric chest wall rise; Absent tenderness or rash Respiratory Respiratory exam: Present normal lung sounds bilaterally; Absent respiratory distress, wheezes, stridor or accessory muscle use Cardiovascular Cardiovascular exam: Present regular rate, normal rhythm and normal heart sounds Abdominal Exam Abdominal exam: Present soft; Absent distention, tenderness, guarding, rebound or rigidity Extremities Exam Extremities exam: Present normal inspection, full ROM and normal capillary refill; Absent tenderness or calf tenderness Back Exam Back exam: Present normal inspection and full ROM; Absent tenderness Neurological Exam Neurological exam: Present alert and oriented X3 Psychiatric Psychiatric exam: Present normal affect and normal mood Skin Skin exam: Present warm, dry, intact and normal color Lymphatic Lymphatic Findings: no adenopathy Medical Decision Making Medical Records Medical records reviewed: No I reviewed the patient's medical records. Angel Inquiry Pt receiving controlled substance: No
[2023-06-02 15:45] VITALS: BP 118/75; PULSE 87; RESP 21; TEMP 36.7; O2SAT 99; BMI 24.3
[2023-06-02 16:04] VITALS: BP 118/75; PULSE 87; RESP 21; TEMP 36.7; O2SAT 99
== END 2023-06-02 16:24 | disposition home or self-care (01) ==
PROVIDERS: Emergency Provider Nurse Practitioner Family; PCP Nurse Practitioner
DX: J01.90 Acute sinusitis, unspecified (principal); H92.03 Otalgia, bilateral; R05.9 Cough, unspecified; R09.81 Nasal congestion
CPT/HCPCS: 99212; 99214; G0463

== ENCOUNTER 2023-06-21 19:00 | Emergency (ER) | payer BC, SELFPAY ==
[2023-06-21 19:01] VITALS: BP 115/92; PULSE 77; RESP 18; TEMP 37.1; O2SAT 100; BMI 23.8
--- NOTE | 2023-06-21 19:24 | XR_ITS ---
PROCEDURE INFORMATION: Exam: XR Right Ankle Exam date and time: 06/21/2023 7:27 PM Age: 38 years old Clinical indication: Pain; Ankle; Right; Additional info: Sprain, lateral R ankle pain TECHNIQUE: Imaging protocol: Radiologic exam of the right ankle. Views: 3 or more views. COMPARISON: MR ANKLE RT WO/W CON 08/06/2019 10:31 AM FINDINGS: Bones/joints: Moderate size plantar spur arising from the calcaneus. Osseous structures and joint surfaces are otherwise unremarkable. No fracture, dislocation or malalignment. Soft tissues: Normal. IMPRESSION: No acute bony abnormalities.
--- NOTE | 2023-06-21 19:24 | XR_ITS ---
PROCEDURE INFORMATION: Exam: XR Right Foot Exam date and time: 06/21/2023 7:27 PM Age: 38 years old Clinical indication: Pain; Foot; Right; Additional info: Sprained lateral right ankle TECHNIQUE: Imaging protocol: Radiologic exam of the right foot. Views: 3 or more views. COMPARISON: CR XR ANKLE RT MIN 3V 06/21/2023 7:27 PM FINDINGS: Bones/joints: Moderate size plantar spur arising from the calcaneus. Osseous structures and joint surfaces are otherwise unremarkable. No fracture, dislocation or malalignment. Soft tissues: Normal. IMPRESSION: No acute bony abnormalities.
--- NOTE | 2023-06-21 19:27 | PC.NURSE ---
ice pack applied to R ankle
[2023-06-21] MEDS: IBUPROFEN 600 MG TABLET PO (19:34)
[2023-06-21] MEDS: ACETAMINOPHEN 500MG TAB 1000 MG PO (19:34)
--- NOTE | 2023-06-21 20:21 | HMH.EDGENADL ---
Discharge Plan Disposition Patient Disposition: Home, Self-Care Chief Complaint: Extremity Injury, Lower Prescriptions Prescriptions: No Action fluoxetine 40 mg Capsule 40 mg PO DAILY estradiol 1 mg tablet 1 mg PO DAILY Patient Comments: Take 1 tablet every day by oral route. benzonatate [benzonatate] 100 mg capsule 100 mg PO TIDP PRN (Reason: Cough) Qty: 30 0RF methylprednisolone 4 mg Tablets,Dose Pack 4 mg PO DIRECTED 6 Days Qty: 21 0RF Rx Instructions: Take 1 pack as directed for 6 days amoxicillin-pot clavulanate 875-125 mg Tablet 1 tab PO Q12H Qty: 20 0RF guaifenesin [Mucinex] 600 mg tablet extended release 12hr 600 - 1,200 mg PO BIDP PRN (Reason: Congestion) Qty: 30 0RF Referrals Follow up/Referrals: Tonya Kwok PA [Primary Care Provider] - See instructions Activity Restrictions/Add. Instructions Additional Instructions/Restrictions: Take Tylenol 1000 mg every 6 hours (4 times daily) and ibuprofen 400 mg every 6 hours (4 times daily) as needed with food and water to prevent GI upset and kidney damage. Call your family doctor to establish care for this visit to the emergency department and schedule follow-up within 48 hours to ensure improvement. If you have any worsening of your condition or any other concerning signs or symptoms, return to the emergency department or your primary care doctor for further evaluation. MRI is tentatively scheduled for 08/05 Clinical Impressions Clinical Impression: Inversion sprain of right ankle, Avulsion fracture of ankle Discharge ED Provider: Antonio Hernandez General Adult [facility] General Chief complaint: Extremity Injury, Lower Stated complaint: [id number] RT ankle inj Time Seen by Provider: 06/21/23 19:04 Mode of Arrival: Wheelchair Source of Information: Patient Limitations: No Limitations Description of Symptoms (Recalled from ER Triage Doc. by RN): Patient reports that she had an injury to her right ankle 2-3 years ago and in the last month this ankle began having tingling and numbness that runs along the outer aspect of her right lower leg/ankle. Patient seen PCP and they made some xray orders that have not been complete at this time. She was walking this evening and stubbed her toe and her foot turned inward and caused her to fall. She has pain and swelling to the dorsal aspect of her foot and ankle rated 7/10 History of Present Illness HPI narrative: Is a 38-year-old female with history of previous right ankle injury presenting with right ankle injury. She states that a couple of years ago she injured her ankle and since that time has had difficulty with instability of the ankle tonight just before arrival, she was walking and her foot inverted and she had immediate pain and swelling. Came to the emergency department for further evaluation. She states that she has had numbness extending from lateral aspect of her right proximal/lower leg for a while. No injury to the knee or fibula. Related Data Home Medications Medication Instructions Recorded Confirmed fluoxetine 40 mg capsule 40 mg PO DAILY 01/27/23 06/02/23 estradiol 1 mg tablet 1 mg PO DAILY 06/02/23 06/02/23 Previous Rx's Medication Instructions Recorded amoxicillin 875 mg-potassium 1 tab PO Q12H #20 tabs 06/02/23 clavulanate 125 mg tablet benzonatate 100 mg capsule 100 mg PO TIDP PRN Cough #30 caps 06/02/23 guaifenesin 600 mg tablet, 600 - 1,200 mg (1 - 2 x 600 mg) PO 06/02/23 extended release 12 hr (Mucinex) BIDP PRN Congestion #30 tabs methylprednisolone 4 mg tablets in 4 mg PO DIRECTED 6 days #21 tabs 06/02/23 a dose pack Allergies Allergy/AdvReac Type Severity Reaction Status Date / Time clarithromycin [From BIAXIN] Allergy Unknown Unknown Verified 03/04/21 13:19 allergy reaction shellfish derived Allergy Unknown I-HIVES Verified 03/04/21 13:19 [From SHELLFISH (FOOD/DRUG)] [facility] [place] Disclaimer: The information contained in this section may have been updated after the patient was seen, as this information can be updated by other users. Medical History (Updated 06/21/23 @ 20:25 by Antonio Hernandez MD) Anxiety Urinary tract infection Hypertension Surgical History (Updated 12/11/21 @ 12:42 by Erika Jones RN) H/O gastric sleeve History of hysterectomy History of section History of cholecystectomy Social History (Updated 12/11/21 @ 12:58 by Cynthia Oleary APRN) Smoking Status: Never smoker second hand exposure: No alcohol intake: never substance use type: denies use current occupational status: other Travel in the last 8 weeks: None household members: spouse housing: house current occupational exposures/hazards: No caffeine: Yes ROS Obtained: Yes All systems reviewed & no additional complaints except as documented Physical Exam General General appearance: alert and in no apparent distress Head Head exam: atraumatic and normocephalic Eye Eye exam: Present normal appearance, PERRL and EOMI ENT ENT exam: Present mucous membranes moist Neck Neck exam: Present normal inspection, full ROM and trachea midline Respiratory Respiratory exam: Absent respiratory distress, wheezes, stridor, accessory muscle use or prolonged expiratory phase Cardiovascular Cardiovascular exam: Present normal rhythm Abdominal Exam Abdominal exam: Present soft; Absent distention, tenderness, guarding, rebound or rigidity Extremities Exam Extremities exam: Present edema and other (Tenderness, swelling along lateral malleolus extending downward toward foot. Range of motion intact and neurovascular intact) Neurological Exam Neurological exam: Present alert, oriented X3, CN II-XII intact and normal gait; Absent motor sensory deficit Skin Skin exam: Present warm and dry; Absent diaphoresis or erythema Medical Decision Making Medical Records Medical records reviewed: Yes I reviewed the patient's medical records. Angel Inquiry Pt receiving controlled substance: No Angel was queried for this patient: No Vital Signs: 06/21/23 19:01 Temperature 98.7 F Temperature Source Oral Pulse Rate [Left Radial] 77 Respiratory Rate 18 Blood Pressure [Right Arm] 115/92 H Blood Pressure Mean [Right Arm] 99 Blood Pressure Source [Right Arm] Automatic Cuff Blood Pressure Position [Right Arm] Sitting 02 Sat by Pulse Oximetry 100 Oxygen Delivery Method Room Air Orders (Tests/Meds): ED MEDICATIONS Discontinued Medications Generic Name Dose Route Start Last Admin Trade Name Yojana PRN Reason Stop Dose Admin Acetaminophen 1,000 mg 06/21/23 19:27 06/21/23 19:34 Acetaminophen 500mg Tab PO 06/21/23 19:28 1,000 mg ONCE ONE Administration Ibuprofen 600 mg 06/21/23 19:27 06/21/23 19:34 Ibuprofen 600 Mg Tablet PO 06/21/23 19:28 600 mg ONCE ONE Administration ORDERS Category Date Time Status Ankle XR -Right minimum 3 Views [XR ankle RT min 3V] Exams 06/21/23 19:24 Completed Stat Foot XR right minimum 3 views [XR foot RT min 3V] Stat Exams 06/21/23 19:24 Completed Medical Decision Narrative: Is a 38-year-old female with history of previous right ankle injury presenting with right ankle injury. She states that a couple of years ago she injured her ankle and since that time has had difficulty with instability of the ankle tonight just before arrival, she was walking and her foot inverted and she had immediate pain and swelling. Came to the emergency department for further evaluation. She states that she has had numbness extending from lateral aspect of her right proximal/lower leg for a while. No injury to the knee or fibula. History obtained with patient. On arrival, patient hemodynamically stable and appropriate. Right lower extremity is tender at lateral malleolus and with associated swelling anterior to the malleolus. Neurovascular intact and range of motion intact, limited just secondary to pain. Patient also has numbness along the lateral aspect of her right leg but not medial. Patient was given Tylenol Motrin p.o. Differential includes fracture, sprain, strain, among others. Independent interpretation of x-rays by me demonstrated avulsion fracture of right lateral malleolus. No obvious other bony abnormality or dislocation. I reviewed patient's chart, she has a MRI of her ankle scheduled for 08/06/2023, this was relayed to patient. Because patient at baseline without signs or symptoms of clinical decompensation, deemed appropriate for discharge. Results were relayed to patient who voiced understanding and were agreeable to outpatient management and follow up. At the time of discharge the patient was hemodynamically stable, tolerating PO, and mobilizing appropriately. Critical Care Critical Care Time Critical Care Time: No
[2023-06-21 20:46] VITALS: BP 112/93; PULSE 73; RESP 18; TEMP 36.7; O2SAT 100
== END 2023-06-21 20:47 | disposition home or self-care (01) ==
PROVIDERS: Emergency Provider Emergency Medicine; PCP Physician Assistant
DX: S92.154A Nondisplaced avulsion fracture (chip fracture) of right talus, initial encounter for closed fracture (principal); S93.401A Sprain of unspecified ligament of right ankle, initial encounter; X50.1XXA Overexertion from prolonged static or awkward postures, initial encounter
CPT/HCPCS: 73610; 73630; 99283

== ENCOUNTER 2024-09-08 15:00 | Outpatient (CLI) | payer MEDICAID, SELFPAY | END 2024-09-08 23:59 | disposition home or self-care (01) | LOC: LAB.DROPOF 09-10 13:11 | PROVIDERS: PCP Nurse Practitioner; Visit Provider Nurse Practitioner | DX: N39.0 Urinary tract infection, site not specified (principal) | CPT/HCPCS: 87086; 87088; 87186 ==